=== PATIENT | male | born 1975 | race Hispanic/Latino ===

== ENCOUNTER 2018-03-15 11:24 | Inpatient (IN) | payer BC ==
--- NOTE | 2018-03-15 12:10 | RAD ---
RADIOGRAPH LEFT FOOT THREE VIEWS: 03/15/2018 HISTORY: A 42-year-old male with left foot infection after penetrating injury last week. COMPARISON: None. FINDINGS: There is subcutaneous emphysema in the plantar soft tissues between the first and second toes. There is diffuse soft tissue swelling and edema of the foot. No fracture, permeative lesion, or periostit is. No joint destruction. IMPRESSION: 1. Diffuse soft tissue edema of the left foot. 2. Prominent focus subcutaneous emphysema at the soft tissues toward the plantar side of the forefoo t, medially. This could either represent infection by a gas forming organism or recent incision and drainage, possibly packed with dressing. Recommend clinical correlation. 3. No focal osseous lesion identified. POS: EL
[2018-03-15 12:15] LABS: #Eosinphils 0.2 thou/uL (0.0-0.7); #Lymphocytes 1.8 thou/uL (1.20-3.40); #Monocytes 0.9 thou/uL (0.11-0.59); #Neutrophils 9.9 thou/uL (1.40-6.50); %Basophils 0.2 % (0.0-1.0); %Eosinophils 1.5 % (0.0-10.0); %Lymphocytes 14.1 % (21.0-51.0); %Monocytes 7.1 % (0.0-10.0); %Neutrophils 77.1 % (42.0-75.0); Mean Corpuscular HGB CONC 34.5 g/dL (32.0-36.0); Mean Corpuscular Volume 90.1 fL (78.0-98.0); Platelet Count 277 thou/uL (130-400); RBC Distribution Width 11.8 % (11.5-14.5); White Blood Cell (WBC) Count 12.8 thou/uL (4.8-10.8)
[2018-03-15] MEDS ORDERED: Adacel (T-DAP) 0.5 ML VIAL ONE (12:23)
[2018-03-15 12:43] LABS: ALT (SGPT) 14 U/L (8-55); AST (SGOT) 16 U/L (5-34); Albumin 3.5 g/dL (3.5-5.0); Alkaline Phosphatase 118 U/L (40-150); Anion Gap 15 mmol/L (10-20); BUN (Urea Nitrogen) 23 mg/dL (8.9-20.6); Bilirubin, Total 0.4 mg/dL (0.2-1.2); Calc. Creatinine Clearance 0 mL/min (70-130); Calcium 9.4 mg/dL (7.8-10.44); Carbon Dioxide 22 mmol/L (22-29); Chloride 101 mmol/L (98-107); Estimated GFR-MDRD 63; Globulin 4.2 g/dL (2.4-3.5); Glucose 301 mg/dL (70-105); Potassium 4.6 mmol/L (3.5-5.1); Protein, Total 7.7 g/dL (6.0-8.3); Sodium 133 mmol/L (136-145)
[2018-03-15] MEDS ORDERED: Piperacillin/Tazobactam 3.375 GM in Sodium Chloride 0.9% 100 ML IVPB SCH (13:00)
[2018-03-15] MEDS ORDERED: Senokot 8.6 MG TAB PO PRN (13:25)
[2018-03-15] MEDS ORDERED: Loratadine 10 MG TAB PO PRN (13:25)
[2018-03-15] MEDS ORDERED: HumaLOG 300 UNITS/3 ML VIAL SC PRN (13:25)
[2018-03-15] MEDS ORDERED: Ondansetron HCl/PF 4 MG/2 ML Vial IVP PRN (13:25)
[2018-03-15] MEDS ORDERED: Bisacodyl 5 MG TAB PO PRN (13:25)
[2018-03-15] MEDS ORDERED: Diabetic Tussin 200 MG/10 ML UDCUP PO PRN (13:25)
[2018-03-15] MEDS ORDERED: hydrALAZINE 20 MG/ML VIAL SLOW IVP PRN (13:25)
[2018-03-15] MEDS ORDERED: cloNIDine 0.1 MG TAB PO PRN (13:25)
[2018-03-15] MEDS ORDERED: Dextrose 5% in Water 1,000 ML IV PRN (13:25)
[2018-03-15] MEDS ORDERED: Benzonatate 100 MG CAP PO PRN (13:25)
[2018-03-15] MEDS ORDERED: Dextrose 50% Abboject 50 ML SYRINGE SLOW IVP PRN (13:25)
[2018-03-15] MEDS ORDERED: traMADol HCl 50 MG TAB PO PRN (13:25)
[2018-03-15] MEDS ORDERED: Mag-Al 1200 mg/1200 mg/30 ML UDCUP PO PRN (13:25)
[2018-03-15] MEDS ORDERED: Calcium Carbonate 500 MG ChewTAB PO PRN (13:25)
[2018-03-15 15:21] VITALS: BMI 37.5
--- NOTE | 2018-03-15 16:22 | HP ---
DATE OF ADMISSION: 03/15/2018 PRIMARY CARE PHYSICIAN: Dr. Ragsdale at [facility]. CHIEF COMPLAINT: Worsening of the left foot wound. HISTORY OF PRESENTING ILLNESS: Mr. Ma is a 42-year-old male with past medical history o f diabetes, hypertension, and dyslipidemia who presented to the ER with above-mentioned complaint. H istory is mainly obtained by the patient himself and electronic medical records have been reviewed. Mr. Krause reports that few days ago he stepped on christian wire that went through his shoe. Since the n he has been noticing a small puncture wound on the dorsum of his left foot. He started to have evi n and some discharge, so he went to [facility]. He reports that the physician mary guerrero did take out the piece of the wire, put the dressing and put him on oral antibiotics and sent him home. He came to the ER today when his symptoms did not improve and he noticed more swelling and pa in in his left foot. In our emergency room, his blood pressure was 145/70 with a pulse of 92 and he was afebrile. His phy sical examination revealed significant left foot swelling with erythema, induration and tenderness. On the plantar surface, there was a puncture wound with mucopurulent foul smelling discharge. He was not too tender on palpation there. X-ray of the foot was done which did not show any signs of osteo myelitis, but gas was noticed between toes 1 and 2. He was given vancomycin, Zosyn, and DTaP in the emergency room and is now being admitted for further evaluation and care. PAST MEDICAL HISTORY: 1. Diabetes mellitus. 2. Hypertension. 3. Dyslipidemia. PAST SURGICAL HISTORY: None. PSYCHIATRIC HISTORY: None reviewed with the patient. SOCIAL HISTORY: He drinks 12 ounce beer on the weekends, but none on the weekdays. No history of dr ug or tobacco abuse. FAMILY HISTORY: Significant for diabetes and hypertension in multiple family members. His father pate d stroke and one of his brothers has diabetes. ALLERGIES: No known medication allergies. CURRENT MEDICATIONS: Are as follows; amlodipine 10 mg daily, benazepril 40 mg daily, Bactrim double strength 1 tablet p.o. b.i.d., glipizide 10 mg p.o. b.i.d., Jardiance 25 mg daily, metformin 1000 mg p.o. b.i.d., metoclopramide 5 mg q.i.d. REVIEW OF SYSTEMS: A 12-point review of systems is done. It is negative except for those mentioned in the history and physical. LABORATORY DATA AND IMAGING DATA: CBC shows WBCs at 12.8 with 77% neutrophils. Serum chemistry: So dium 133, BUN 23, glucose 301, lactic acid 1.8. Foot x-ray by my review has no evidence of any fract ures. Soft tissue swelling is noticed. Radiologist has noticed gas between toes 1 and 2 as noticed by myself. PHYSICAL EXAMINATION: VITAL SIGNS: Most recent vital signs; temperature 98.3, pulse of 94, respirations 18, saturating 97% on room air, blood pressure 173/77. GENERAL: No acute distress, awake, alert, oriented x3. HEENT: Mucous membrane is moist and pink. No oropharyngeal exudate or erythema. Head is normocepha lic, atraumatic. Pupils are equal, reactive to light and accommodation. Extraocular movement intact . NECK: Supple without any lymphadenopathy, JVD or bruit. CHEST: Clear to auscultation without any wheezing, rales or rhonchi. Rate and rhythm is regular wit hout any murmur, rubs or gallops. ABDOMEN: Soft, nontender, nondistended with positive bowel sounds. EXTREMITIES: Examination showed left leg edema extending from the toes upwards to mid calf. His lef t foot is under dressing. NEUROLOGIC: Examination is nonfocal. SKIN: Free of any rashes or bruises. I feel warm and dry to touch. PSYCHIATRIC: Normal affect. IMPRESSION AND PLAN: 1. Left foot nonhealing diabetic wound secondary to foreign body. Dr. Jean has been consulted and fortunately, the patient has already undergone a bedside I&D by Dr. Jean. We will start him on br oad spectrum IV antibiotic with clindamycin as well as Zosyn for now. We will cover Pseudomonas MRSA and gas forming bacteria as well. Cultures have been submitted to the emergency room for the blood. At this time, the patient is not exhibiting any signs and symptoms to suggest sepsis. Further emeli gement will depend upon his clinical course. Wound cultures have also been submitted. 2. Diabetes mellitus with hyperglycemia. We will resume patient's home medication with the exceptio n of metformin. He does not take insulin at home. We will start him on insulin sliding scale in add ition to his oral hypoglycemics. We will add Accu-Cheks a.c. and at bedtime. 3. Hypertension. We will resume his home medication of Norvasc and benazepril and add p.r.n. antihy pertensives. 4. History of dyslipidemia. The patient was taken off of his cholesterol medications according to h im as they were making him sick. He will follow up with primary care physician with regards to that. 5. Deep venous thrombosis and gastrointestinal prophylaxis. DISPOSITION: Mr. Ma is currently being admitted to the hospital for failure of outpatie nt antibiotic therapy for worsening of left foot infection after penetration with a foreign body. Es timated length of stay at this time is at least 2-3 midnights. Further management will depend upon h is clinical course.
[2018-03-15] MEDS: Clindamycin/D5W 600 MG in Premix Bag 1 BAG IVPB SCH ×2 (16:53→22:05)
[2018-03-15] MEDS: Metoclopramide HCl 10 MG TAB PO SCH ×2 (16:53→21:00)
[2018-03-15] MEDS: Acetaminophen 325 MG TAB PO PRN (16:53)
[2018-03-15] MEDS: HumaLOG 300 UNITS/3 ML VIAL SC PRN (17:03)
--- NOTE | 2018-03-15 18:49 | HP ---
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 He presented to [facility] [address] and x-rays obtained of his foot revealed a for eign body. He was called to return. It was removed in the clinic. He was started on oral antibioti cs. He presents to the emergency room today and admitted by Hospitalist Service. X-rays of left franklin t revealed gas in the soft tissue, has blistering on the plantar aspect of the foot. He has been adm itted, started on intravenous antibiotics. Hospitalist has asked me to see him. ALLERGIES: None. TOBACCO: None. ALCOHOL: Socially. MEDICATIONS: Reglan, metformin, Jardiance, glipizide, Bactrim, benazepril, amlodipine. He has been started on clindamycin intravenously in the hospital. He has been started on Zosyn. X-rays reveal s ome soft tissue gas. REVIEW OF SYSTEMS: Noncontributory. SOCIAL HISTORY: Patient is . PAST SURGICAL AND MEDICAL HISTORY: Noncontributory except for hypertension, diabetes, and elevated c holesterol. PHYSICAL EXAMINATION: VITAL SIGNS: 5 feet 5 inches. 226 pounds, 37 BMI, 98.3, 94, 173/77. HEAD, EYES, EARS, NOSE AND THROAT: Unremarkable. LUNGS: Clear to auscultation. CARDIAC: Regular rate and rhythm without murmur or gallop. ABDOMEN: Soft, obese. EXTREMITIES: Palpable femoral, popliteal pedal pulses. Over his left foot plantar has blistering sk in. There is a puncture site which was explored and probed and is about 2 cm deep. I do not appreci ate any purulent discharge frankly. White count 12, hemoglobin 13. Basic metabolic profile unremarkable. Glucose 301. ASSESSMENT AND PLAN: Severe infection, diabetic foot puncture wound. Agree with intravenous antibio tics. We will plan bedside debridement.
--- NOTE | 2018-03-15 19:13 | OP ---
PREOPERATIVE DIAGNOSIS: Diabetic left foot infection, puncture wound. POSTOPERATIVE DIAGNOSIS: Diabetic left foot infection, puncture wound. PROCEDURES PERFORMED: 1. Incision and drainage. 2. Excision of blistering thick skin, plantar left foot. 3. Culture of deep puncture wound, left foot. 4. Incision and drainage puncture wound, left foot. 5. Wound packed open. SURGEON: Dr. Brett Jean ANESTHESIA: None. PROCEDURE IN DETAIL: At the patient's bedside in his room, his left foot was cleansed with alcohol p ad and blistered skin was removed sharply with scissors, excising it. This was excised with the plan tar aspect of the foot. Over the forefoot plantar aspect, there is a puncture wound. This puncture wound when explored has undermining cavity. This was opened sharply with the scissors. Deep culture s were obtained, submitted to microbiology. Wound irrigated. Gauze dressing applied. Patient rafael ated the procedure well.
[2018-03-15] MEDS: HYDROcodone/Acetaminophen 5/325 mg Tablet PO PRN (21:01)
[2018-03-15] MEDS: Piperacillin/Tazobactam 3.375 GM in Sodium Chloride 0.9% 100 ML IVPB SCH (21:03)
[2018-03-16] MEDS: Piperacillin/Tazobactam 3.375 GM in Sodium Chloride 0.9% 100 ML IVPB SCH ×4 (02:15→20:30)
[2018-03-16] MEDS: Acetaminophen 325 MG TAB PO PRN ×3 (04:10→22:24)
[2018-03-16 04:29] LABS: Anion Gap 13 mmol/L (10-20); BUN (Urea Nitrogen) 20 mg/dL (8.9-20.6); Calc. Creatinine Clearance 154 mL/min (70-130); Calcium 9.2 mg/dL (7.8-10.44); Carbon Dioxide 25 mmol/L (22-29); Chloride 104 mmol/L (98-107); Estimated GFR-MDRD Greater than 90; Glucose 157 mg/dL (70-105); Potassium 4.1 mmol/L (3.5-5.1); Sodium 138 mmol/L (136-145)
[2018-03-16 06:09] LABS: #Basophils 0.1 thou/uL (0.0-0.2); #Eosinphils 0.3 thou/uL (0.0-0.7); #Lymphocytes 2.1 thou/uL (1.20-3.40); #Monocytes 1.2 thou/uL (0.11-0.59); %Basophils 0.6 % (0.0-1.0); %Eosinophils 2.3 % (0.0-10.0); %Lymphocytes 18.3 % (21.0-51.0); %Monocytes 10.3 % (0.0-10.0); %Neutrophils 68.4 % (42.0-75.0); Hemoglobin 11.9 g/dL (14.0-18.0); Mean Corpuscular HGB CONC 34.5 g/dL (32.0-36.0); Mean Corpuscular Hemoglobin 31.3 pg (27.0-31.0); Mean Corpuscular Volume 90.8 fL (78.0-98.0); Mean Platelet Volume 8.2 fL (7.4-10.4); Platelet Count 236 thou/uL (130-400); RBC Distribution Width 11.8 % (11.5-14.5); White Blood Cell (WBC) Count 11.6 thou/uL (4.8-10.8)
[2018-03-16] MEDS: Clindamycin/D5W 600 MG in Premix Bag 1 BAG IVPB SCH ×3 (06:43→22:11)
[2018-03-16] MEDS: HYDROcodone/Acetaminophen 5/325 mg Tablet PO PRN ×3 (07:38→22:08)
[2018-03-16] MEDS: Amlodipine 10 MG TAB PO SCH (07:39)
[2018-03-16] MEDS: Metoclopramide HCl 10 MG TAB PO SCH ×4 (07:41→22:09)
[2018-03-16] MEDS: Saccharomyces boulardii 250 MG CAP PO SCH (07:42)
[2018-03-16] MEDS: Enoxaparin Sodium 40 MG/0.4 ML SYRINGE SC SCH (07:43)
[2018-03-16] MEDS ORDERED: Empagliflozin [Jardiance] 25 MG PO SCH (09:00)
[2018-03-16] MEDS: HumaLOG 300 UNITS/3 ML VIAL SC PRN (13:11)
--- NOTE | 2018-03-16 13:19 | PDOC.PN ---
- Subjective Encounter Start Date: 03/16/18 Encounter Start Time: 13:17 Subjective: feels much better. received woun dcare this morning -: no fever/chills. foot not very painful - Objective MAR Reviewed: Yes Vital Signs & Weight: Vital Signs (12 hours) Temp Pulse Resp BP BP Pulse Ox 03/16/18 11:35 98.5 F 82 20 119/55 L 96 03/16/18 08:01 98.3 F 85 20 135/74 97 03/16/18 08:00 98.3 F 85 20 97 03/16/18 07:42 135/74 03/16/18 07:39 84 135/74 03/16/18 04:15 98.8 F 90 16 143/70 H 97 Weight Weight 226 lb I&O: 03/15/18 03/16/18 03/17/18 06:59 06:59 06:59 Intake Total 720 Balance 720 Result Diagrams: 03/16/18 04:03 03/16/18 04:03 Additional Labs: Accuchecks 03/15/18 03/15/18 19:22 16:21 POC Glucose 261 H 287 H Microbiology 03/15/18 15:42 Foot - Left Bacterial Culture - Preliminary Gram Negative Gen 03/15/18 12:07 Venous blood - Left Arm Blood Culture - Preliminary Specimen has been received and culture in progress. No Growth to date. 03/15/18 12:01 Venous blood - Right Arm Blood Culture - Preliminary Specimen has been received and culture in progress. No Growth to date. Laboratory Tests 03/15/18 03/16/18 12:09 04:03 WBC 12.8 H 11.6 H labs reviewed Phys Exam - Physical Examination Constitutional: NAD HEENT: PERRLA, moist MMs, sclera anicteric, oral pharynx no lesions Neck: no nodes, no JVD, supple, full ROM Respiratory: no wheezing, no rales, no rhonchi, clear to auscultation bilateral Cardiovascular: RRR, no significant murmur, no rub Gastrointestinal: soft, non-tender, no distention, positive bowel sounds Musculoskeletal: no edema, pulses present Neurological: non-focal, normal sensation, moves all 4 limbs Psychiatric: normal affect, A&O x 3 Skin: no rash Dx/Plan (1) Diabetic foot ulcer Code(s): E11.621 - TYPE 2 DIABETES MELLITUS WITH FOOT ULCER; L97.509 - NON- PRESSURE CHRONIC ULCER OTH PRT UNSP FOOT W UNSP SEVERITY Status: Acute Qualifiers: Diabetes mellitus type: type 2 Laterality: left (2) DM2 (diabetes mellitus, type 2) Status: Chronic Qualifiers: Diabetes mellitus watermaster insulin use: without longterm use Diabetes mellitus complication status: with hyperglycemia Qualified Code(s): E11.65 - Type 2 diabetes mellitus with hyperglycemia (3) HTN (hypertension) Code(s): I10 - ESSENTIAL (PRIMARY) HYPERTENSION Status: Chronic (4) HLD (hyperlipidemia) Code(s): E78.5 - HYPERLIPIDEMIA, UNSPECIFIED Status: Chronic - Plan DVT proph w/SCDs Cont empiric ABx .wound care -: likley change to Po tomorrow -: set up OP wound care cloinic -: Hd stable. -: laureano home in am if final Cx results back.appreciate GS input * . Review of Systems - Review of Systems Constitutional: negative: fever, chills, sweats, weakness, malaise, other ENT: negative: Ear Pain, Ear Discharge, Nose Pain, Nose Discharge, Nose Congestion, Mouth Pain, Mouth Swelling, Throat Pain, Throat Swelling, Other Respiratory: negative: Cough, Dry, Shortness of Breath, Hemoptysis, SOB with Excertion, Pleuritic Pain, Sputum, Wheezing Cardiovascular: negative: chest pain, palpitations, orthopnea, paroxysmal nocturnal dyspnea, edema, light headedness, other Gastrointestinal: negative: Nausea, Vomiting, Abdominal Pain, Diarrhea, Constipation, Melena, Hematochezia, Other Genitourinary: negative: Dysuria, Frequency, Incontinence, Hematuria, Retention , Other Musculoskeletal: negative: Neck Pain, Shoulder Pain, Arm Pain, Back Pain, Hand Pain, Leg Pain, Foot Pain, Other Skin: negative: Rash, Lesions, Igor, Bruising, Other Neurological: negative: Weakness, Numbness, Incoordination, Change in Speech, Confusion, Seizures, Other - Medications/Allergies Allergies/Adverse Reactions: Allergies Allergy/AdvReac Type Severity Reaction Status Date / Time No Known Drug Allergies Allergy Verified 03/15/18 14:43 Medications: Current Medications Acetaminophen (Tylenol) 650 mg PO Q4H PRN PRN Reason: Headache/Fever or Mild Pain Last Admin: 03/16/18 04:10 Dose: 650 mg Hydrocodone Bitart/Acetaminophen ([place] 5/325) 1 tab PO Q4H PRN PRN Reason: Moderate Pain (4-6) Last Admin: 03/16/18 11:36 Dose: 1 tab Al Hydroxide/Mg Hydroxide (Maalox) 15 ml PO Q4H PRN PRN Reason: Heartburn or Indigestion Amlodipine Besylate (Norvasc) 10 mg PO DAILY [facility] Last Admin: 03/16/18 07:39 Dose: 10 mg Benazepril HCl (Lotensin) 40 mg PO DAILY [facility] Last Admin: 03/16/18 07:42 Dose: 40 mg Benzonatate (Tessalon) 100 mg PO Q4H PRN PRN Reason: Cough Bisacodyl (Dulcolax) 10 mg PO DAILYPRN PRN PRN Reason: Constipation Calcium Carbonate (Tums) 1,000 mg PO Q4H PRN PRN Reason: Heartburn or Indigestion Clonidine (Catapres) 0.1 mg PO Q4H PRN PRN Reason: Systolic BP > 160 Dextrose/Water (Dextrose 50%) 25 gm SLOW IVP PRN PRN PRN Reason: Hypoglycemia Enoxaparin Sodium (Lovenox) 40 mg SC 0900 [facility] Last Admin: 03/16/18 07:43 Dose: 40 mg Glipizide (Glucotrol Xl) 10 mg PO BID [facility] Last Admin: 03/16/18 07:43 Dose: 10 mg Glucagon (Glucagon) 1 mg IM PRN PRN PRN Reason: Hypoglycemia Guaifenesin (Robitussin Sf) 200 mg PO Q4H PRN PRN Reason: Cough Hydralazine HCl (Apresoline) 10 mg SLOW IVP Q4H PRN PRN Reason: Systolic BP > 170 Clindamycin Phosphate/Dextrose (600 mg/ Device) 50 mls @ 100 mls/hr IVPB Q8HR [facility] Last Admin: 03/16/18 13:12 Dose: 50 mls Piperacillin Sod/Tazobactam (Sod 3.375 gm/ Sodium Chloride) 100 mls @ 200 mls/ hr IVPB 0200,0800,1400,2000 [facility] Last Admin: 03/16/18 07:43 Dose: 100 mls Dextrose/Water (D5w) 1,000 mls @ 0 mls/hr IV .Q0M PRN PRN Reason: Hypoglycemia Insulin Human Lispro (Humalog) 0 units SC .AGGRESSIVE SLIDING PRN PRN Reason: Aggressive Correctional Scale Last Admin: 03/16/18 13:11 Dose: 3 unit Insulin Human Lispro (Humalog) 0 units SC .BEDTIME SLIDING SC PRN PRN Reason: Bedtime Correctional Scale Last Admin: 03/15/18 21:03 Dose: 3 unit Loratadine (Claritin) 10 mg PO DAILYPRN PRN PRN Reason: Sinus Symptoms Metoclopramide HCl (Reglan) 5 mg PO QID [facility] Last Admin: 03/16/18 13:12 Dose: 5 mg Ondansetron HCl (Zofran) 4 mg IVP Q6H PRN PRN Reason: Nausea/Vomiting Empagliflozin [ (Jardiance] 25 Mg) 1 each PO DAILY [facility] Saccharomyces Boulardii (Florastor) 250 mg PO DAILY [facility] Last Admin: 03/16/18 07:42 Dose: 250 mg Senna (Senokot) 2 tab PO HSPRN PRN PRN Reason: Constipation Sodium Chloride (Flush - Normal Saline) 10 ml IVF Q12HR [facility] Last Admin: 03/16/18 11:39 Dose: 10 ml Sodium Chloride (Flush - Normal Saline) 10 ml IVF PRN PRN PRN Reason: Saline Flush Tramadol HCl (Ultram) 50 mg PO Q4H PRN PRN Reason: Moderate Pain (4-6)
--- NOTE | 2018-03-16 14:04 | PRG ---
DATE OF SERVICE: 03/16/2018 Mr. Ma is postoperative day #1 following incision and drainage of a left foot infection per Dr. Jean. The patient has no new complaints. He does have some appropriate discomfort at the operative site. The dressing has already been changed by the wound care team and he is ambulating in the man. PHYSICAL EXAMINATION: VITAL SIGNS: He is afebrile, pulse is 82, blood pressure 119/55. EXTREMITIES: The foot is not examined as it has an intact dressing. LABORATORY STUDIES: His Gram stain reveals gram-negative rods and gram-positive cocci. Initial cult ure reveals gram negative florencio, but this is not speciated. His CBC reveals white blood cell count has dropped from 12.8 yesterday to 11.6 today. In summary, he is doing well following incision and drainage of his foot infection. He will continue on IV antibiotics for now. Dr. Jean can assess the wound tomorrow with dressing change and he david l probably be ready for discharge at that time.
[2018-03-17] MEDS: Piperacillin/Tazobactam 3.375 GM in Sodium Chloride 0.9% 100 ML IVPB SCH ×4 (02:30→20:40)
[2018-03-17] MEDS: Clindamycin/D5W 600 MG in Premix Bag 1 BAG IVPB SCH ×2 (07:42→13:15)
[2018-03-17] MEDS: HYDROcodone/Acetaminophen 5/325 mg Tablet PO PRN ×3 (07:43→21:05)
[2018-03-17] MEDS: Enoxaparin Sodium 40 MG/0.4 ML SYRINGE SC SCH (09:19)
[2018-03-17] MEDS: Metoclopramide HCl 10 MG TAB PO SCH ×4 (09:22→21:07)
[2018-03-17] MEDS: Saccharomyces boulardii 250 MG CAP PO SCH (09:22)
[2018-03-17] MEDS: Amlodipine 10 MG TAB PO SCH (09:23)
[2018-03-17] MEDS: HumaLOG 300 UNITS/3 ML VIAL SC PRN ×2 (11:19→16:29)
--- NOTE | 2018-03-17 18:23 | PRG ---
DATE OF SERVICE: 03/17/2018 SUBJECTIVE: Francesca is doing somewhat better. He is not having any new complaints. OBJECTIVE: VITAL SIGNS: Temperature 98.5 degrees, pulse 86. LABORATORY DATA: White count 11, hemoglobin 11.9. Basic metabolic profile normal. Cultures from hi s foot wound Enterobacter. Blood cultures negative. Inspection of his foot wound reveals that the opening is present, is present, I have replaced w ith a normal saline wet to dry dressings and Coban present. There are no changes in his wound status . ASSESSMENT AND PLAN: Diabetic foot wound infection, status post removal of foreign body. We will co ntinue daily wound care, washing the wound with soap and water and applying a normal saline gauze wet to dry dressing. The patient has a neighbor, they can do the wound care. I have recommended that t his neighbor be brought in and instructed on wound care prior to discharge from my standpoint. The p atient will be discharged home with wound care daily as an outpatient, directions as noted above. I will be out of town the next week, Dr. Solomon is covering next week. Please call surgery if needed, otherwise I will see him as needed will see him in the office.
--- NOTE | 2018-03-17 21:01 | PDOC.PN ---
- Subjective Encounter Start Date: 03/17/18 Encounter Start Time: 12:45 Subjective: pt up in bed no complains - Objective Vital Signs & Weight: Vital Signs (12 hours) Temp Pulse Resp BP Pulse Ox 03/17/18 19:51 100.8 F H 98 18 166/79 H 95 03/17/18 17:13 100.3 F H 86 16 03/17/18 09:23 86 Weight Admit Weight 226 lb Weight 226 lb I&O: 03/16/18 03/17/18 03/18/18 06:59 06:59 06:59 Intake Total 1600 Balance 1600 Result Diagrams: 03/16/18 04:03 03/16/18 04:03 Additional Labs: Accuchecks 03/17/18 03/17/18 03/17/18 20:29 16:13 11:04 POC Glucose 140 H 174 H 270 H 03/17/18 05:27 POC Glucose 215 H Phys Exam - Physical Examination HEENT: PERRLA, moist MMs, sclera anicteric, TM's clear, oral pharynx no lesions , 2+ tonsils Neck: no nodes, no JVD, supple, full ROM Respiratory: no wheezing, no rales, no rhonchi, wheezing present, clear to auscultation bilateral Cardiovascular: RRR, no significant murmur, no rub, gallop, irregular Gastrointestinal: soft, non-tender, no distention, positive bowel sounds left foot wrapped Neurological: non-focal, normal sensation, moves all 4 limbs Dx/Plan (1) Diabetic foot ulcer Code(s): E11.621 - TYPE 2 DIABETES MELLITUS WITH FOOT ULCER; L97.509 - NON- PRESSURE CHRONIC ULCER OTH PRT UNSP FOOT W UNSP SEVERITY Status: Acute Qualifiers: Diabetes mellitus type: type 2 Laterality: left (2) DM2 (diabetes mellitus, type 2) Status: Chronic Qualifiers: Diabetes mellitus long-term insulin use: without long-term use Diabetes mellitus complication status: with hyperglycemia Qualified Code(s): E11.65 - Type 2 diabetes mellitus with hyperglycemia - Plan will wait until cx is finalized -: pt did get tetanus shot -: will discontinue clinda and keep zosyn for now * . Review of Systems - Review of Systems ENT: negative: Ear Pain, Ear Discharge, Nose Pain, Nose Discharge, Nose Congestion, Mouth Pain, Mouth Swelling, Throat Pain, Throat Swelling, Other Respiratory: negative: Cough, Dry, Shortness of Breath, Hemoptysis, SOB with Excertion, Pleuritic Pain, Sputum, Wheezing Cardiovascular: negative: chest pain, palpitations, orthopnea, paroxysmal nocturnal dyspnea, edema, light headedness, other Gastrointestinal: negative: Nausea, Vomiting, Abdominal Pain, Diarrhea, Constipation, Melena, Hematochezia, Other - Medications/Allergies Allergies/Adverse Reactions: Allergies Allergy/AdvReac Type Severity Reaction Status Date / Time No Known Drug Allergies Allergy Verified 03/15/18 14:43 Medications: Current Medications Acetaminophen (Tylenol) 650 mg PO Q4H PRN PRN Reason: Headache/Fever or Mild Pain Last Admin: 03/17/18 21:05 Dose: 650 mg Hydrocodone Bitart/Acetaminophen ([place] 5/325) 1 tab PO Q4H PRN PRN Reason: Moderate Pain (4-6) Last Admin: 03/18/18 08:35 Dose: 1 tab Al Hydroxide/Mg Hydroxide (Maalox) 15 ml PO Q4H PRN PRN Reason: Heartburn or Indigestion Amlodipine Besylate (Norvasc) 10 mg PO DAILY [facility] Last Admin: 03/18/18 08:30 Dose: 10 mg Benazepril HCl (Lotensin) 40 mg PO DAILY [facility] Last Admin: 03/18/18 08:31 Dose: 40 mg Benzonatate (Tessalon) 100 mg PO Q4H PRN PRN Reason: Cough Last Admin: 03/16/18 22:08 Dose: 100 mg Bisacodyl (Dulcolax) 10 mg PO DAILYPRN PRN PRN Reason: Constipation Calcium Carbonate (Tums) 1,000 mg PO Q4H PRN PRN Reason: Heartburn or Indigestion Clonidine (Catapres) 0.1 mg PO Q4H PRN PRN Reason: Systolic BP > 160 Last Admin: 03/17/18 21:07 Dose: 0.1 mg Dextrose/Water (Dextrose 50%) 25 gm SLOW IVP PRN PRN PRN Reason: Hypoglycemia Enoxaparin Sodium (Lovenox) 40 mg SC 0900 [facility] Last Admin: 03/18/18 08:30 Dose: 40 mg Glipizide (Glucotrol Xl) 10 mg PO BID [facility] Last Admin: 03/18/18 08:31 Dose: 10 mg Glucagon (Glucagon) 1 mg IM PRN PRN PRN Reason: Hypoglycemia Guaifenesin (Robitussin Sf) 200 mg PO Q4H PRN PRN Reason: Cough Hydralazine HCl (Apresoline) 10 mg SLOW IVP Q4H PRN PRN Reason: Systolic BP > 170 Piperacillin Sod/Tazobactam (Sod 3.375 gm/ Sodium Chloride) 100 mls @ 200 mls/ hr IVPB 0200,0800,1400,2000 [facility] Last Admin: 03/18/18 13:44 Dose: 100 mls Dextrose/Water (D5w) 1,000 mls @ 0 mls/hr IV .Q0M PRN PRN Reason: Hypoglycemia Insulin Human Lispro (Humalog) 0 units SC .AGGRESSIVE SLIDING PRN PRN Reason: Aggressive Correctional Scale Last Admin: 03/17/18 16:29 Dose: 3 unit Insulin Human Lispro (Humalog) 0 units SC .BEDTIME SLIDING SC PRN PRN Reason: Bedtime Correctional Scale Last Admin: 03/15/18 21:03 Dose: 3 unit Loratadine (Claritin) 10 mg PO DAILYPRN PRN PRN Reason: Sinus Symptoms Metoclopramide HCl (Reglan) 5 mg PO QID [facility] Last Admin: 03/18/18 13:44 Dose: 5 mg Ondansetron HCl (Zofran) 4 mg IVP Q6H PRN PRN Reason: Nausea/Vomiting Empagliflozin [ (Jardiance] 25 Mg) 1 each PO DAILY [facility] Saccharomyces Boulardii (Florastor) 250 mg PO DAILY [facility] Last Admin: 03/18/18 08:30 Dose: 250 mg Senna (Senokot) 2 tab PO HSPRN PRN PRN Reason: Constipation Sodium Chloride (Flush - Normal Saline) 10 ml IVF Q12HR [facility] Last Admin: 03/18/18 08:32 Dose: 10 ml Sodium Chloride (Flush - Normal Saline) 10 ml IVF PRN PRN PRN Reason: Saline Flush Tramadol HCl (Ultram) 50 mg PO Q4H PRN PRN Reason: Moderate Pain (4-6)
[2018-03-17] MEDS: Acetaminophen 325 MG TAB PO PRN (21:05)
[2018-03-18] MEDS: Piperacillin/Tazobactam 3.375 GM in Sodium Chloride 0.9% 100 ML IVPB SCH ×4 (02:05→13:44)
[2018-03-18] MEDS: HYDROcodone/Acetaminophen 5/325 mg Tablet PO PRN ×3 (04:26→14:32)
[2018-03-18] MEDS: Saccharomyces boulardii 250 MG CAP PO SCH (08:30)
[2018-03-18] MEDS: Amlodipine 10 MG TAB PO SCH (08:30)
[2018-03-18] MEDS: Enoxaparin Sodium 40 MG/0.4 ML SYRINGE SC SCH (08:30)
[2018-03-18] MEDS: Metoclopramide HCl 10 MG TAB PO SCH ×2 (08:31→13:44)
[2018-03-18 11:59] VITALS: BP 126/61; TEMP 98.1
--- NOTE | 2018-03-20 10:46 | PDOC.EVN ---
Event Note - Event Note Event Note: pt's final cx indicated staph mssa and enterobacter will change to abx to bactrim
--- NOTE | 2018-03-20 10:47 | DIS ---
DATE OF ADMISSION: 03/15/2018 DATE OF DISCHARGE: 03/18/2018 DISCHARGE DIAGNOSES: As of the followin. Diabetic foot ulcer. 2. Diabetes. 3. Obesity. HOSPITAL COURSE: The patient is a 42-year-old male who initially presented to the hospital with comp laints of left foot pain after stepping on a metal object. Patient initially presented to the [facility] and x-rays indicated foreign body. He was then started on antibiotics and was transferred t o our hospital for further evaluation. The patient's x-ray did indicate a left foot gas in the soft tissue, had blistering on the plantar aspect of the foot. At this time, he was put on IV antibiotics and admitted to Medicine. The patient was seen by Surgery and underwent an incision and drainage an d excision of the blister thick skin at the plantar aspect of his left foot and cultures were done an d the wound also was packed. The patient and family was given instruction on wound care. He will fo llow up with Dr. Jean in wound clinic next week. The patient's culture initially indicated Enterob acter cloacae; however, final culture which came back on 03/20/2018 indicated Enterobacter cloacae co mplex and Staph aureus which was sensitive to oxacillin. At this time, initially I had prescribed hi m ciprofloxacin; however, I changed it over to Bactrim, which would cover both. PHYSICAL EXAMINATION: VITAL SIGNS: As the following: Discharge 98.1, 81, 125/60, 93% on room air. GENERAL: He is awake, alert, oriented x3. He does not appear in any distress. CARDIOVASCULAR: S1, S2 present. No murmurs, rubs or gallops. ABDOMEN: Soft, nontender. Bowel sounds are present x2. EXTREMITIES: No edema. He does have his left foot which is wrapped. HOME MEDICATIONS: As of the following, metoclopramide 5 mg q.i.d., Metformin 1000 b.i.d., Jardiance 25 mg daily, Glipizide 10 mg b.i.d., benazepril 40 mg daily, amlodipine 10 mg daily, Ultram 50 q.4 ho urs p.r.n., Bactrim 1 p.o. b.i.d., Florastor 250 mg daily. Again, Cipro initially was prescribed whi ch was then discontinued.
--- NOTE | 2018-03-22 06:28 | PQF ---
NOMIGERI ALANFLAVIA KHAN [id number] CLINICAL DOCUMENTATION CLARIFICATION FORM: POST DISCHARGE DATE: 03/22/2018 ATTN: Dr. Harrison Please exercise your independent, professional judgment in responding to the clarification form. Clinical indicators are provided on the bottom of this form for your review Please clarify diabetic foot infection as: Please check appropriate box(s): [ x ] Left diabetic foot infection with cellulitis [ ] Left foot cellulitis not due to diabetes [ ] Other diagnosis (please specify) [ ] Unable to determine In addition, please specify: Present on Admission (POA): [ x ] Yes [ ] No [ ] Unable to determine For continuity of documentation, please document condition throughout progress notes and discharge summary. Thank You. CLINICAL INDICATORS - SIGNS / SYMPTOMS / LABS Per H&P Dr. Jean: Stepped on metal object left foot several days ago. Removed. X-ray of left foot revealed gas in the soft tissue and has blistering on the plantar aspect of the foot. Severe infection, diabetic foot puncture wound. Admission H&P: Puncture wound left foot with mucopurulent foul smelling discharge. Left leg edema extending from the toes upwards to mid calf. Left foot nonhealing diabetic wound secondary to foreign body. Per operative report: Diabetic left foot infection, puncture wound. Per Dr. Jean's progress note: Diabetic foot wound infection. Documentation of Cellulitis per ED record--Cellulitis to left foot. RISKS: (Per H&P) Diabetes type II. Recent puncture wound to left foot. TREATMENT: (per H&P/medications/progress notes) IV Vancomycin. IV Zosyn. IV Clindamycin. Per operative report 03/15: Excision of blistering thick skin, plantar left foot. Incision and drainage puncture wound, left foot. Culture of deep puncture wound left foot. Daily wound care. (This form is maintained as a part of the permanent medical record) 2014 [employer]. All Rights Reserved Lashonda [email or web address] [phone] MTDD
== END 2018-03-18 16:40 | disposition home or self-care (01) | DRG 638 ==
LOC: ERS 11:24 → ONC 12:46
PROVIDERS: ADMIT Internal Medicine; ATTEND Internal Medicine
PROC: 0HBNXZZ Excision of Left Foot Skin, External Approach (ICD-10-PCS; principal; 2018-03-15)
PROC: 0Y9N0ZZ Drainage of Left Foot, Open Approach (ICD-10-PCS; 2018-03-15)
DX: E11.621 Type 2 diabetes mellitus with foot ulcer (principal); L03.116 Cellulitis of left lower limb; E11.628 Type 2 diabetes mellitus with other skin complications; L97.529 Non-pressure chronic ulcer of other part of left foot with unspecified severity; E11.65 Type 2 diabetes mellitus with hyperglycemia; I10 Essential (primary) hypertension; E78.5 Hyperlipidemia, unspecified; S91.332A Puncture wound without foreign body, left foot, initial encounter; E66.9 Obesity, unspecified; Z68.37 Body mass index [BMI] 37.0-37.9, adult; B95.61 Methicillin susceptible Staphylococcus aureus infection as the cause of diseases classified elsewhere; B96.89 Other specified bacterial agents as the cause of diseases classified elsewhere; Z79.84 Long term (current) use of oral hypoglycemic drugs; Z79.899 Other long term (current) drug therapy; W26.8XXA Contact with other sharp object(s), not elsewhere classified, initial encounter
CPT/HCPCS: 36415; 36416; 80048; 80053; 83605; 85025; 87040; 87070; 87077; 87186; 87205; 90471; 90715; 96365; 96367; A4216; J1650; J2543; J3370; J3490; J7050

== ENCOUNTER 2018-03-22 07:38 | Outpatient (CLI) | payer BC ==
--- NOTE | 2018-03-22 09:44 | HP ---
DATE OF SERVICE: 03/22/2018 HISTORY OF PRESENT ILLNESS: Mr. Cristiano Fierro is a very pleasant 42-year-old gentleman who pre sents to the Wound Center for evaluation of a wound of the plantar surface of the left forefoot subse quent to incision and drainage of a left foot puncture wound at bedside on 03/15/[address] Brett Jean. The patient was discharged to home on Bactrim. Also at the time of discharge, the patient w as referred to the Wound Center for further evaluation and treatment. PAST MEDICAL HISTORY: 1. Diabetes mellitus. 2. Hypertension. PAST SURGICAL HISTORY: Incision and drainage of left foot puncture wound at bedside as per HPI. MEDICATIONS: 1. Ultram. 2. Norvasc. 3. Benazepril. 4. Empagliflozin. 5. Glipizide. 6. Metformin. 7. Reglan. ALLERGIES: No known diagnosed allergies. SOCIAL HISTORY: Significant for tobacco use of 1 pack of cigarettes per day for 15 years. The patie nt states that he stopped smoking in his 20s. The patient admits to the occasional consumption of al cohol in the past. He states that he stopped drinking completely 5 years ago. FAMILY HISTORY: Significant for diabetes mellitus. The patient states that his mother and brother w ere both diagnosed with diabetes mellitus. Family history is negative for coronary artery disease. PHYSICAL EXAMINATION: VITAL SIGNS: Temperature 97.6, pulse 76, respirations 21, blood pressure 134/74. Accu-Chek 71. GENERAL: A 42-year-old gentleman sitting on table in examination room in no acute distress. HEENT: Normocephalic, atraumatic. NECK: No nuchal rigidity. CHEST: Clear to auscultation. CARDIAC: Regular rate and rhythm. ABDOMEN: Soft. EXTREMITIES: A wound of the plantar surface of the left forefoot is present which measures approxima tely 4.0 x 2.2 cm. Granulation tissue is present within the wound margins. Necrotic and nonviable t issue present within the wound margins was debrided with an excisional full-thickness debridement wit h the use of scissors. No purulent drainage is associated with the wound. No erythema of the skin s urrounding the wound is present. No maceration of the skin of the periwound is noted. A dorsalis pe dis pulse is easily palpable on the left. Edema of the left foot is present on exam today. NEUROLOGIC: Grossly nonfocal. ASSESSMENT AND PLAN: 1. Wound of plantar surface of left forefoot subsequent to incision and drainage of a left foot punc ture wound at bedside on 03/15/[address] Brett Jean. Wet to dry dressing changes as per Dr. Dimas will be continued. Multidex powder, however, will be added to the patient's regimen. The patie nt will be seen by Dr. Jean in 1 week. I will see Florencia Jimi Mccrary in 2 weeks. The patient has been reminded to continue Bactrim DS as prescribed at the time of discharge. 2. Diabetes mellitus. The patient's Accu-Chek in clinic today is 71. The patient has been told janeth t for optimal wound healing, his blood glucoses should remain below 150. 3. Hypertension.
[2018-03-22] MEDS ORDERED: Sodium Chloride 0.9% 15 ML NEB ONE (17:48)
[2018-03-22] MEDS ORDERED: Lidocaine 2% Jelly 5 ML TUBE ONE (17:48)
== END 2018-03-22 07:39 | disposition home or self-care (01) ==
LOC: WCC 07:38
PROVIDERS: ATTEND Family Medicine
DX: T81.89XD Other complications of procedures, not elsewhere classified, subsequent encounter (principal); S91.332A Puncture wound without foreign body, left foot, initial encounter; E11.9 Type 2 diabetes mellitus without complications; I10 Essential (primary) hypertension
CPT/HCPCS: 36416; A4218

== ENCOUNTER 2018-04-05 10:57 | Outpatient (CLI) | payer BC ==
--- NOTE | 2018-04-05 12:16 | PRG ---
DATE OF SERVICE: 04/05/2018 HISTORY: Mr. Cristiano Mccrary is a very pleasant 42-year-old gentleman who presents to the Wound Center for evaluation of a wound of the plantar surface of the left forefoot subsequent to incision a nd drainage of the left foot puncture wound at bedside on 03/15/[address] Brett Jean. The noemi ent was discharged to home on Bactrim. Also at the time of discharge, the patient was referred to [facility] for further evaluation and treatment. The patient states that he has been placed on a nother course of p.o. antibiotics by Dr. Jean which he is taking as prescribed. After being seen i n the Wound Center, the patient was placed on dressing changes of Multidex powder in conjunction with wet to dry dressing changes. PHYSICAL EXAMINATION: VITAL SIGNS: Temperature 98.2, pulse 89, respirations 21, blood pressure 162/74. Accu-Chek 140. EXTREMITIES: A wound of the plantar surface of the left forefoot is present which measures approxima tely 4.0 x 2.0 cm. Granulation tissue is present within the wound margins. Necrotic and nonviable t issue present within the wound margins was debrided with an excisional full-thickness debridement wit h the use of scissors. No purulent drainage is associated with the wound. No erythema of the skin s urrounding the wound is present. No maceration of the skin of the periwound is noted. A dorsalis pe dis pulse is easily palpable on the left. Edema of the left foot is again present on exam today. ASSESSMENT AND PLAN: 1. Wound of plantar surface of left forefoot subsequent to incision and drainage of the left foot pu ncture wound at bedside on 03/15/[address] Brett Jean. Wet to dry dressing changes in conjunct ion with Multidex powder will be continued on a daily basis after cleansing and irrigation. The noemi ent will be seen by Dr. Jean in 1 week. I will see Mr. Krause again in two weeks. As stated abo e, the patient is taking a second course of p.o. antibiotics as per Dr. Jean as prescribed. The pa tient is also utilizing a knee scooter for offloading. 2. Diabetes mellitus. The patient's Accu-Chek in clinic today is 140. The patient has been reminde d that for optimal wound healing, his blood glucoses should remain below 150. 3. Hypertension.
== END 2018-04-05 10:58 | disposition home or self-care (01) ==
LOC: WCC 10:57
PROVIDERS: ATTEND Family Medicine
DX: T81.89XD Other complications of procedures, not elsewhere classified, subsequent encounter (principal); E11.9 Type 2 diabetes mellitus without complications; I10 Essential (primary) hypertension
CPT/HCPCS: 36416

== ENCOUNTER 2018-04-17 14:34 | Outpatient (CLI) | payer BC ==
--- NOTE | 2018-04-17 15:51 | PRG ---
DATE OF SERVICE: 04/17/2018 HISTORY: Mr. Cristiano Mccrary is a very pleasant 42-year-old gentleman, who presents to the [facility] for evaluation of a wound of the plantar surface of the left forefoot subsequent to incision and drainage of a left foot puncture wound at bedside on 03/15/[address] Brett Jean. The noemi ent was discharged to home on Bactrim. Also at the time of discharge, the patient was referred to [facility] [place] for further evaluation and treatment. The patient stated at the time of his last visi t that he had been placed on another course of p.o. antibiotics by Dr. Jean. After being seen in [facility] [place], the patient was placed on dressing changes of Multidex powder in conjunction with a wet to dry dressing changes. The patient states that he is receiving these dressing changes on a kalpana ly basis with the assistance of a neighbor. PHYSICAL EXAMINATION: VITAL SIGNS: Temperature 98.1, pulse 77, respirations 21, blood pressure 155/92. Accu-Chek 109. EXTREMITIES: A wound of the plantar surface of the left forefoot is present, which measures approxim ately 2.7 x 1.7 cm. The dimensions of the wound at the time of the patient's last visit were approxi mately 4.0 x 2.0 cm. Granulation tissue is present within the wound margins. Necrotic and nonviable tissue present within the wound margins was debrided with an excisional full-thickness debridement w ith the use of a curette and scissors. No purulent drainage is associated with the wound. No erythe ma of the skin surrounding the wound is present. No maceration of the skin of the periwound is noted . A dorsalis pedis pulse is easily palpable on the left. A posterior tibial pulse is not palpable. A dorsalis pedis pulse and posterior tibial pulse are both palpable on the right. No significant ed humberto of the left foot is present on exam today. ASSESSMENT AND PLAN: 1. Wound of plantar surface of left forefoot subsequent to incision and drainage of a left foot punc ture wound at bedside on 03/15/[address] Brett Jean. Wet to dry dressing changes in conjunctio n with Multidex powder will be continued on a daily basis after cleansing and irrigation. As stated above, a neighbor is assisting the patient with his dressing changes. The patient will be seen by Dr Florencia Jean in 1 week. I will see Mr. Chavez again in two weeks. Also as stated above, the patient w as placed on a second course of p.o. antibiotics by Dr. Jean. The patient continues to utilize a k nee scooter for offloading. 2. Diabetes mellitus. The patient's Accu-Chek in clinic today is 109. The patient has been reminde d that for optimal wound healing, his blood glucoses should remain below 150. 3. Hypertension. The patient's blood pressure in clinic today is 155/92. The patient has been told that his blood pressures should remain below 140/90 in view of his diagnosis of diabetes mellitus.
== END 2018-04-17 14:35 | disposition home or self-care (01) ==
LOC: WCC 14:34
PROVIDERS: ATTEND Family Medicine
DX: T81.89XD Other complications of procedures, not elsewhere classified, subsequent encounter (principal); E11.9 Type 2 diabetes mellitus without complications; I10 Essential (primary) hypertension

== ENCOUNTER 2018-05-01 13:45 | Outpatient (CLI) | payer BC ==
[~2018-05-01 13:45] MED LIST: Lidocaine 2% Jelly 5 ML TUBE ONE; Sodium Chloride 0.9% 15 ML NEB ONE
--- NOTE | 2018-05-01 16:04 | PRG ---
DATE OF SERVICE: 05/01/2018 HISTORY: Mr. Cristiano Mccrary is a very pleasant 42-year-old gentleman who presents to the Wound Center for evaluation of a wound of the plantar surface of the left forefoot subsequent to incision and drainage of a left foot puncture wound at bedside on 03/15/[address] Brett Jean. The patie nt was discharged to home on Bactrim. Also at the time of discharge, the patient was referred to the Wound Center for further evaluation and treatment. The patient was subsequently placed on another c ourse of p.o. antibiotics by Dr. Jean. After being seen in the Wound Center, the patient was place d on dressing changes of Multidex powder in conjunction with wet to dry dressing changes. Again, the patient states that he has been receiving these dressing changes on a daily basis with the assistanc e of a neighbor. PHYSICAL EXAMINATION: VITAL SIGNS: Temperature 97.7, pulse 82, respirations 16, blood pressure 195/94. Accu-Chek 80. EXTREMITIES: A wound of the plantar surface of the left forefoot is present, which measures approxim ately 3.0 x 1.4 cm. The dimensions of the wound at the time of the patient's last visit were approxi mately 2.7 x 1.7 cm. Granulation tissue is present within the wound margins. Necrotic and nonviable tissue present within the wound margins was debrided with an excisional full-thickness debridement w ith the use of a curette and scissors. No purulent drainage is associated with the wound. No erythe ma of the skin surrounding the wound is present. No maceration of the skin of the periwound is noted . A dorsalis pedis pulse is easily palpable on the left. No significant edema of the left foot is p resent on exam today. ASSESSMENT AND PLAN: 1. Wound of plantar surface of left forefoot subsequent to incision and drainage of a left foot punc ture wound at bedside on 03/15/[address] Brett Jean. Wet to dry dressing changes in conjunctio n with Multidex powder will be continued on a daily basis after cleansing and irrigation with the ass istance of a neighbor. I will see Mr. Chavez again in two weeks. The patient continues to utilize a knee scooter for offloading. The patient has been given a release from work for the next two week s. 2. Diabetes mellitus. The patient's Accu-Chek in clinic today is 80. The patient has been reminded that for optimal wound healing, his blood glucoses should remain below 150. 3. Hypertension. The patient's blood pressure in clinic today is 195/94. The patient has been aske d to report to the Emergency Department after his discharge from clinic today. He states that he david l contact his primary care physician instead upon his discharge from clinic.
== END 2018-05-01 13:46 | disposition home or self-care (01) ==
LOC: WCC 13:45
PROVIDERS: ATTEND Family Medicine
DX: T81.89XD Other complications of procedures, not elsewhere classified, subsequent encounter (principal); E11.9 Type 2 diabetes mellitus without complications; I10 Essential (primary) hypertension
CPT/HCPCS: 11042; A4218

== ENCOUNTER 2018-05-01 15:35 | Emergency (ER) | payer BC | END 2018-05-01 16:27 | disposition left against medical advice (07) | LOC: ERS 15:35 | DX: Z53.21 Procedure and treatment not carried out due to patient leaving prior to being seen by health care provider (principal) | CPT/HCPCS: 93005 ==

== ENCOUNTER 2018-05-17 13:32 | Outpatient (CLI) | payer BC ==
--- NOTE | 2018-05-17 14:43 | PRG ---
DATE OF SERVICE: 05/17/2018 HISTORY: Mr. Cristiano Mccrary is a very pleasant 42-year-old gentleman who presents to the Wound Center for evaluation of a wound of the plantar surface of the left forefoot subsequent to incision and drainage of a left foot puncture wound at bedside on 03/15/[address] Brett Jean. The patie nt was discharged to home on Bactrim. Also at the time of discharge, the patient was referred to the Wound Center for further evaluation and treatment. The patient was subsequently placed on another c ourse of p.o. antibiotics by Dr. Jean. After being seen in the Wound Center, the patient was place d on dressing changes of Multidex powder in conjunction with wet to dry dressing changes. PHYSICAL EXAMINATION: VITAL SIGNS: Temperature 97.9, pulse 93, respirations 19, blood pressure 184/86. Accu-Chek 142. EXTREMITIES: A wound of the plantar surface of the left forefoot is present, which measures approxim ately 1.8 x 0.6 cm. The dimensions of the wound at the time of the patient's last visit were approxi mately 3.0 x 1.4 cm. Granulation tissue is present within the wound margins. Necrotic and nonviable tissue present within the wound margins was debrided with an excisional full-thickness debridement w ith the use of a curette and scissors. No purulent drainage is associated with the wound. No erythe ma of the skin surrounding the wound is present. No maceration of the skin of the periwound is noted . No significant edema of the left foot is present on exam today. ASSESSMENT AND PLAN: 1. Wound of plantar surface of left forefoot subsequent to incision and drainage of the left foot pu ncture wound at bedside on 03/15/[address] Bertt Jean. Wet to dry dressing changes in conjunct ion with Multidex powder will be continued on a daily basis after cleansing and irrigation. I will s ee Mr. Chavez again in two weeks. The patient continues to utilize a knee scooter for offloading. The patient has been given a release from work for the next two weeks. 2. Diabetes mellitus. The patient's Accu-Chek in clinic today is 142. The patient has been reminde d that for optimal wound healing, his blood glucoses should remain below 150. 3. Hypertension.
[2018-05-17] MEDS ORDERED: Sodium Chloride 0.9% 15 ML NEB ONE (15:00)
== END 2018-05-17 13:33 | disposition home or self-care (01) ==
LOC: WCC 13:32
PROVIDERS: ATTEND Family Medicine
DX: T81.89XD Other complications of procedures, not elsewhere classified, subsequent encounter (principal); E11.9 Type 2 diabetes mellitus without complications; I10 Essential (primary) hypertension
CPT/HCPCS: 11042; 36416; A4218

== ENCOUNTER 2018-05-31 14:19 | Outpatient (CLI) | payer BC ==
--- NOTE | 2018-05-31 15:28 | PRG ---
DATE OF SERVICE: 05/31/2018 HISTORY: Mr. Cristiano Mccrary is a very pleasant 42-year-old gentleman who presents to the Wound Center for evaluation of a wound of the plantar surface of the left forefoot subsequent to incision and drainage of a left foot puncture wound at bedside on 03/15/[address] Brett Jean. The patie nt was discharged home on Bactrim. Also at the time of discharge, the patient was referred to the und Center for further evaluation and treatment. The patient was subsequently placed on another cour se of p.o. antibiotics by Dr. Jean. After being seen in the Wound Center, the patient was placed o n dressing changes of Multidex powder in conjunction with wet to dry dressing changes. PHYSICAL EXAMINATION: VITAL SIGNS: Temperature 97.6, pulse 99, respirations 16, blood pressure 180/101. Accu-Chek 129. EXTREMITIES: A wound of the plantar surface of the left forefoot is present, which measures approxim ately 1.0 x 0.3 cm. The depth of the wound is approximately 0.6 cm. The dimensions of the wound at the time of the patient's last visit were approximately 1.8 x 0.6 cm. Granulation tissue is present within the wound margins. Necrotic and nonviable tissue present within the wound margins was debride d with an excisional full-thickness debridement. No purulent drainage is associated with the wound. No erythema of the skin surrounding the wound is present. No maceration of the skin of the periwoun d is noted. No significant edema of the left foot is present on exam today. ASSESSMENT AND PLAN: 1. Wound of plantar surface of left forefoot subsequent to incision and drainage of left foot punctu re wound at bedside on 03/15/[address] Brett Jean. Wet to dry dressing changes in conjunction with Multidex powder will be continued on a daily basis after cleansing and irrigation. I will see Cherry Chavez again in two weeks. The patient has been given a release from work for the next two week s. 2. Diabetes mellitus. The patient's Accu-Chek in clinic today is 129. The patient has been reminde d that for optimal wound healing, his blood glucoses should remain below 150. 3. Hypertension. The patient has been asked to report to the Emergency Department upon his discharg e from clinic today for treatment of his elevated blood pressure noted at the time of his clinic thu garcia
[2018-05-31] MEDS ORDERED: Sodium Chloride 0.9% 15 ML NEB ONE (15:53)
== END 2018-05-31 14:20 | disposition home or self-care (01) ==
LOC: WCC 14:19
PROVIDERS: ATTEND Family Medicine
DX: T81.89XD Other complications of procedures, not elsewhere classified, subsequent encounter (principal); I10 Essential (primary) hypertension; E11.9 Type 2 diabetes mellitus without complications
CPT/HCPCS: 11042; A4218

== ENCOUNTER 2018-06-22 09:36 | Outpatient (CLI) | payer BC ==
--- NOTE | 2018-06-22 10:44 | PRG ---
DATE OF SERVICE: 06/22/2018 HISTORY: Mr. Cristiano Mccrary is a very pleasant 42-year-old gentleman who presents to the Wound Center for evaluation of a wound of the plantar surface of the left forefoot subsequent to incision and drainage of a left foot puncture wound at bedside on 03/15/[address] Brett Jean. The patie nt was discharged home on Bactrim. Also at the time of discharge, the patient was referred to the und Center for further evaluation and treatment. The patient was subsequently placed on another cour se of p.o. antibiotics by Dr. Jean After being seen in the Wound Center, the patient was placed on dressing changes of Multidex powder in conjunction with a wet to dry dressing changes. PHYSICAL EXAMINATION: VITAL SIGNS: Temperature 97.3, pulse 86, respirations 17, blood pressure 192/91. Accu-Chek 160. EXTREMITIES: The wound of the plantar surface of the left forefoot has healed completely. A dorsali s pedis pulse is easily palpable on the left. Edema of the left foot is, however, noted on exam toda y. ASSESSMENT AND PLAN: 1. Wound of plantar surface of left forefoot subsequent to incision and drainage of left foot punctu re wound at bedside on 03/15/[address] Brett Jean. As stated above, the wound has healed compl etely and Mr. Chavez will be discharged from clinic today with followup on a p.r.n. basis. The pat ient has been given a release in order to return to work. The patient states he will consider obtain ing diabetic shoes with inserts. 2. Diabetes mellitus. The patient's Accu-Chek in clinic today is 160. 3. Hypertension.
== END 2018-06-22 09:37 | disposition home or self-care (01) ==
LOC: WCC 09:36
PROVIDERS: ATTEND Family Medicine
DX: S91.332D Puncture wound without foreign body, left foot, subsequent encounter (principal); E11.9 Type 2 diabetes mellitus without complications; I10 Essential (primary) hypertension; Z98.890 Other specified postprocedural states
CPT/HCPCS: 97602

== ENCOUNTER 2018-07-05 14:48 | Emergency (ER) | payer BC ==
--- NOTE | 2018-07-05 15:45 | RAD ---
LEFT FORELEG TWO VIEWS: 07/05/18 INDICATION: History of pain. FINDINGS: Soft tissue swelling of the left forearm. There is stippled calcifications seen within the anterior s oft tissues likely related to small phleboliths. No acute osseous abnormality is evident. IMPRESSION: No acute osseous abnormality. POS: T[facility]
[2018-07-05 16:23] LABS: #Basophils 0.1 thou/uL (0.0-0.2); #Eosinphils 0.2 thou/uL (0.0-0.7); #Lymphocytes 2.7 thou/uL (1.20-3.40); #Monocytes 0.6 thou/uL (0.11-0.59); #Neutrophils 5.1 thou/uL (1.40-6.50); %Basophils 0.9 % (0.0-1.0); %Eosinophils 2.8 % (0.0-10.0); %Lymphocytes 30.8 % (21.0-51.0); %Monocytes 7.1 % (0.0-10.0); %Neutrophils 58.5 % (42.0-75.0); Hemoglobin 12.9 g/dL (14.0-18.0); Mean Corpuscular HGB CONC 33.3 g/dL (32.0-36.0); Mean Corpuscular Hemoglobin 29.4 pg (27.0-31.0); Mean Corpuscular Volume 88.1 fL (78.0-98.0); Mean Platelet Volume 8.8 fL (7.4-10.4); Platelet Count 209 thou/uL (130-400); RBC Distribution Width 12.4 % (11.5-14.5); Red Blood Cell (RBC) Count 4.38 mill/uL (4.70-6.10); White Blood Cell (WBC) Count 8.7 thou/uL (4.8-10.8)
--- NOTE | 2018-07-05 16:29 | ULT ---
ULTRASOUND WITH DOPPLER DUPLEX VENOUS LOWER EXTREMITY LEFT 07/05/18 CPT: 33167 ICD-10-PCS: B54D HISTORY: Edema, pain. TECHNIQUE: Color flow Doppler, spectral waveform analysis of pulsed Doppler, and mccloud-scale imaging with britt arline and augmentation, were used to evaluate the left common femoral, femoral, popliteal, posterior t ibial, and superficial femoral, veins; and the proximal portions of the profunda femoral and greater saphenous, veins. FINDINGS: There is appropriate compressibility and flow within the imaged deep vein system of the left lower ex tremity. Incidental note of fat containing left inguinal region lymph node. IMPRESSION: No DVT of the imaged left lower extremity. Soft tissue edema. Correlate clinically. POS: ALONZO
[2018-07-05 16:44] LABS: Anion Gap 11 mmol/L (10-20); BUN (Urea Nitrogen) 21 mg/dL (8.9-20.6); Calc. Creatinine Clearance 0 mL/min (70-130); Calcium 9.2 mg/dL (7.8-10.44); Carbon Dioxide 27 mmol/L (22-29); Chloride 106 mmol/L (98-107); Estimated GFR-MDRD Greater than 90; Glucose 177 mg/dL (70-105); Potassium 3.9 mmol/L (3.5-5.1); Sodium 140 mmol/L (136-145)
--- NOTE | 2018-07-05 17:38 | RAD ---
LEFT FOOT THREE VIEWS: 07/05/18 HISTORY: Foot pain. There is some arthritic changes of the great toe. There are vascular mary calcifications seen. No sign s of fracture. IMPRESSION: No acute bony findings. POS: EL
== END 2018-07-05 17:50 | disposition home or self-care (01) ==
LOC: ERS 14:48
DX: L03.116 Cellulitis of left lower limb (principal); E11.9 Type 2 diabetes mellitus without complications; E78.5 Hyperlipidemia, unspecified; I10 Essential (primary) hypertension
CPT/HCPCS: 36415; 80048; 85025; 85652; 86140